=== PATIENT | male | born 1960 | race Caucasian/White ===

== ENCOUNTER 2016-12-06 00:23 | Emergency (ER) | payer MEDICAID ==
[~2016-12-06] VITALS: Ht 175.3 cm; Wt 86.0 kg
[2016-12-06 01:57] LABS: BASOPHILS % 0.9 % (0.0-2.0); DIFFERENTIAL COMMENT 0; EOSINOPHILS % 1.2 % (0.0-5.0); HEMATOCRIT. 35.3 % (42.0-52.0); HEMOGLOBIN. 11.5 g/dL (14.0-18.0); LYMPHOCYTES % 8.1 % (20.0-50.0); MEAN CORPUSCULAR HEMOGLOBIN 25.6 pg (28.0-32.0); MEAN CORPUSCULAR HGB CONC 32.6 g/dL (31.0-37.0); MEAN CORPUSCULAR VOLUME 78.6 fL (80.0-94.0); MEAN PLATELET VOLUME 7.5 fl (7.4-10.4); MONOCYTES % 8.4 % (2.0-8.0); NEUTROPHILS % 81.4 % (40.0-76.0); PLATELET 301 x1000/uL (130-400); RED BLOOD CELL COUNT 4.49 mill/uL (4.7-6.1); RED CELL DISTRIBUTION WIDTH 16.2 % (11.6-14.6); WHITE BLOOD COUNT 10.5 x1000/uL (4.5-11.0)
[2016-12-06 02:15] LABS: ALANINE AMINOTRANSFERASE 22 IU/L (13-61); ALBUMIN 2.9 g/dL (3.4-5.0); ANION GAP 12; CALCIUM 8.6 mg/dL (8.5-10.1); CARBON DIOXIDE 25 mEq/L (21-32); CHLORIDE 106 mEq/L (98-107); INDEX HEMOLYSI 1 (1-3); INDEX ICTERIC 1 (1-4); INDEX LIPEMIC 1 (1-3); NT PRO B-TYPE NATRIURETIC PEP 74 pg/mL (5-125); TROPONIN I < 0.02 ng/mL (0.00-0.04); UREA NITROGEN BLOOD 14 mg/dL (7-21); eGFR > 60 mL/min (>60)
[2016-12-06 04:02] VITALS: BP 138/71
== END 2016-12-06 04:20 | disposition home or self-care (01) ==
LOC: ER 00:29
DX: J40 Bronchitis, not specified as acute or chronic (principal); I50.9 Heart failure, unspecified; F17.210 Nicotine dependence, cigarettes, uncomplicated; G40.909 Epilepsy, unspecified, not intractable, without status epilepticus; Z88.0 Allergy status to penicillin; Z88.8 Allergy status to other drugs, medicaments and biological substances
CPT/HCPCS: 36415; 71010; 80053; 83880; 84484; 85025; 93005; 99285; Z7610

== ENCOUNTER 2017-02-09 23:18 | Emergency (ER) | payer MEDICAID ==
[~2017-02-09] VITALS: Ht 177.8 cm; Wt 79.0 kg
[2017-02-10] MEDS ORDERED: IBUPROFEN 600MG TABLET PO ONE (08:15)
[2017-02-10 08:28] LABS: BASOPHILS % 0.8 % (0.0-2.0); EOSINOPHILS % 2.1 % (0.0-5.0); HEMOGLOBIN. 12.7 g/dL (14.0-18.0); LYMPHOCYTES % 17.2 % (20.0-50.0); MEAN CORPUSCULAR HEMOGLOBIN 26.3 pg (28.0-32.0); MEAN CORPUSCULAR VOLUME 79.1 fL (80.0-94.0); MEAN PLATELET VOLUME 7.9 fl (7.4-10.4); MONOCYTES % 10.2 % (2.0-8.0); NEUTROPHILS % 69.7 % (40.0-76.0); PLATELET 222 x1000/uL (130-400); RED BLOOD CELL COUNT 4.81 mill/uL (4.7-6.1); RED CELL DISTRIBUTION WIDTH 16.8 % (11.6-14.6)
[2017-02-10 08:39] LABS: CARBON DIOXIDE 24 mEq/L (21-32); CHLORIDE 110 mEq/L (98-107); ETHANOL BLOOD < 10 mg/dL
[2017-02-10 08:56] VITALS: BP 122/73
[2017-02-10 09:04] LABS: *AMPHETAMINES SCREEN URINE NEGATIVE (NEGATIVE); *BARBITURATES SCREEN URINE NEGATIVE (NEGATIVE); *BENZODIAZEPINES SCREEN URINE NEGATIVE (NEGATIVE); *COCAINE SCREEN URINE PRESUMTIVE POSITIVE (NEGATIVE); CANNABINOID URINE SCREEN NEGATIVE (NEGATIVE); METHADONE URINE SCREEN NEGATIVE (NEGATIVE); OPIATES URINE SCREEN NEGATIVE (NEGATIVE); PHENCYCLIDINE URINE SCREEN NEGATIVE (NEGATIVE)
== END 2017-02-10 09:34 | disposition home or self-care (01) ==
LOC: ER 23:18
DX: S00.33XA Contusion of nose, initial encounter (principal); F12.10 Cannabis abuse, uncomplicated; F14.10 Cocaine abuse, uncomplicated; F17.200 Nicotine dependence, unspecified, uncomplicated; Z88.0 Allergy status to penicillin; Z88.8 Allergy status to other drugs, medicaments and biological substances; Y08.89XA Assault by other specified means, initial encounter; Y93.89 Activity, other specified; Y99.8 Other external cause status; Y92.89 Other specified places as the place of occurrence of the external cause
CPT/HCPCS: 36415; 70150; 80048; 80305; 80307; 80329; 85025; 99285; G0482

== ENCOUNTER 2017-02-10 21:41 | Emergency (ER) | payer MEDICAID ==
[~2017-02-10] VITALS: Ht 177.8 cm; Wt 83.7 kg
[2017-02-11 03:39] VITALS: BP 132/72
== END 2017-02-11 03:42 | disposition home or self-care (01) ==
LOC: ER 02-11 02:15
DX: J40 Bronchitis, not specified as acute or chronic (principal); F17.200 Nicotine dependence, unspecified, uncomplicated; Z88.0 Allergy status to penicillin
CPT/HCPCS: 71010; 99283

== ENCOUNTER 2017-04-14 22:26 | Emergency (ER) | payer MEDICAID ==
[~2017-04-14] VITALS: Ht 177.8 cm; Wt 81.2 kg
[2017-04-14 22:42] VITALS: BP 133/103
== END 2017-04-15 01:25 | disposition left against medical advice (07) ==
LOC: ER 22:26
DX: R42 Dizziness and giddiness (principal); R53.83 Other fatigue; Z53.21 Procedure and treatment not carried out due to patient leaving prior to being seen by health care provider

== ENCOUNTER 2017-04-21 03:43 | Emergency (ER) | payer MEDICAID ==
[~2017-04-21] VITALS: Ht 177.8 cm; Wt 82.0 kg
[2017-04-21 03:49] VITALS: BP 130/91
== END 2017-04-21 06:49 | disposition left against medical advice (07) ==
LOC: ER 06:38
DX: R07.9 Chest pain, unspecified (principal); R42 Dizziness and giddiness; Z53.21 Procedure and treatment not carried out due to patient leaving prior to being seen by health care provider

== ENCOUNTER 2019-11-26 20:24 | Emergency (ER) | payer MEDICAID ==
[~2019-11-26] VITALS: Ht 180.3 cm; Wt 82.0 kg
[2019-11-26 20:33] VITALS: BP 151/87
== END 2019-11-26 23:31 | disposition left against medical advice (07) ==
LOC: ER 20:24
DX: R11.2 Nausea with vomiting, unspecified (principal); Z53.21 Procedure and treatment not carried out due to patient leaving prior to being seen by health care provider

== ENCOUNTER 2025-05-05 20:49 | Emergency (ER) | payer MEDICAID ==
[~2025-05-05] VITALS: Ht 172.7 cm; Wt 68.0 kg
[~2025-05-05 20:49] MED LIST: KEPP500 PO
[2025-05-05 20:51] VITALS: TEMP 36.6; O2SAT 98
[2025-05-05 23:02] LABS: HEMATOCRIT. 34.0 % (42.0-52.0); HEMOGLOBIN. 11.3 g/dL (14.0-18.0); MEAN PLATELET VOLUME 8.7 fl (7.4-10.4); PLATELET 105 x1000/uL (130-400); RED BLOOD CELL COUNT 4.13 mill/uL (4.7-6.1); RED CELL DISTRIBUTION WIDTH 24.7 % (11.6-14.6)
[2025-05-05 23:17] LABS: CREATININE 0.9 mg/dL (0.6-1.3)
[2025-05-05 23:18] LABS: CREATININE 0.9 mg/dL (0.6-1.3); EOSINOPHILS % MANUAL 1.0 % (0.0-5.0); LYMPHOCYTES % MANUAL 22.0 % (20.0-50.0); MONOCYTES % MANUAL 17.0 % (2.0-8.0); NEUTROPHILS % MANUAL 60.0 % (45.0-75.0); PLATELET ESTIMATE DECREASED; TROPONIN I HIGH SENSITIVITY 4 ng/L (3.0-53); UREA NITROGEN BLOOD 14 mg/dL (9-23); VALPROIC ACID 99.0 ug/mL (50-100)
[2025-05-05 23:19] LABS: TROPONIN I HIGH SENSITIVITY 4 ng/L (3.0-53); UREA NITROGEN BLOOD 14 mg/dL (9-23)
[2025-05-05 23:20] LABS: ASPARTATE AMINOTRANSFERASE 19 IU/L (<34); BILIRUBIN DIRECT < 0.1 mg/dL (<=3.0); CARBAMAZEPINE < 0.4 ug/mL (4-12)
[2025-05-05 23:21] LABS: BILIRUBIN TOTAL 0.2 mg/dL (0.1-1.0); PROTEIN TOTAL 5.1 g/dL (6.0-8.3)
[2025-05-06 00:50] VITALS: BP 116/79; PULSE 70; RESP 20; O2SAT 98
== END 2025-05-06 00:51 | disposition home or self-care (01) ==
LOC: ER 20:49
DX: G40.909 Epilepsy, unspecified, not intractable, without status epilepticus (principal); F31.9 Bipolar disorder, unspecified; I11.0 Hypertensive heart disease with heart failure; I49.1 Atrial premature depolarization; I50.9 Heart failure, unspecified; J45.909 Unspecified asthma, uncomplicated; Z86.73 Personal history of transient ischemic attack (TIA), and cerebral infarction without residual deficits; Z88.0 Allergy status to penicillin; Z88.8 Allergy status to other drugs, medicaments and biological substances
CPT/HCPCS: 36415; 80048; 80076; 80156; 80165; 84484; 85025; 93005; 99284

== ENCOUNTER 2025-07-24 14:00 | Emergency (ER) | payer MEDICAID ==
[~2025-07-24] VITALS: Ht 170.2 cm; Wt 84.0 kg
[2025-07-24 14:05] VITALS: TEMP 98.2; O2SAT 100
[2025-07-24] MEDS: HYDROCODONE/ACETAMINOPHEN 5/325MG TABLET PO ONE (17:07)
[2025-07-24 19:30] VITALS: BP 115/82; PULSE 61; RESP 12; O2SAT 97
== END 2025-07-24 19:53 | disposition home or self-care (01) ==
LOC: ER 14:10
DX: S09.90XA Unspecified injury of head, initial encounter (principal); F31.9 Bipolar disorder, unspecified; I11.0 Hypertensive heart disease with heart failure; J45.909 Unspecified asthma, uncomplicated; Z86.73 Personal history of transient ischemic attack (TIA), and cerebral infarction without residual deficits; Z88.0 Allergy status to penicillin; Z88.8 Allergy status to other drugs, medicaments and biological substances; W18.30XA Fall on same level, unspecified, initial encounter; Y93.89 Activity, other specified; Y92.89 Other specified places as the place of occurrence of the external cause; Y99.8 Other external cause status
CPT/HCPCS: 99283

== ENCOUNTER 2025-07-24 21:18 | Emergency (ER) | payer MEDICAID ==
[~2025-07-24] VITALS: Ht 177.8 cm; Wt 87.0 kg
[2025-07-24 21:21] VITALS: O2SAT 97
[2025-07-24 21:28] VITALS: BP 104/73; PULSE 78; RESP 16; TEMP 36.9; O2SAT 98
== END 2025-07-24 21:50 | disposition home or self-care (01) ==
LOC: ER 21:18
DX: R56.9 Unspecified convulsions (principal); F31.9 Bipolar disorder, unspecified; I11.0 Hypertensive heart disease with heart failure; J45.909 Unspecified asthma, uncomplicated; Z86.73 Personal history of transient ischemic attack (TIA), and cerebral infarction without residual deficits; Z88.0 Allergy status to penicillin; Z88.8 Allergy status to other drugs, medicaments and biological substances
CPT/HCPCS: 99282

== ENCOUNTER 2025-08-10 12:19 | Emergency (ER) | payer MEDICAID ==
[~2025-08-10] VITALS: Ht 180.3 cm; Wt 88.3 kg
[2025-08-10 12:20] VITALS: O2SAT 96
[2025-08-10 13:42] LABS: HEMATOCRIT. 38.3 % (42.0-52.0); HEMOGLOBIN. 12.4 g/dL (14.0-18.0); MEAN PLATELET VOLUME 8.4 fl (7.4-10.4); PLATELET 124 x1000/uL (130-400); RED BLOOD CELL COUNT 4.17 mill/uL (4.7-6.1); RED CELL DISTRIBUTION WIDTH 16.2 % (11.6-14.6)
[2025-08-10 14:00] LABS: CREATININE 1.0 mg/dL (0.6-1.3); ETHANOL BLOOD < 10 mg/dL (<10); UREA NITROGEN BLOOD 8 mg/dL (9-23)
[2025-08-10 14:17] LABS: BAND% 2.0 % (1.0-6.0); EOSINOPHILS % MANUAL 2.0 % (0.0-5.0); LYMPHOCYTES % MANUAL 30.0 % (20.0-50.0); MONOCYTES % MANUAL 16.0 % (2.0-8.0); NEUTROPHILS % MANUAL 50.0 % (45.0-75.0)
[2025-08-10 14:18] LABS: PLATELET ESTIMATE SLIGHTLY DECREASED
[2025-08-10] MEDS: LEVETIRACETAM 1000MG PREMIX 100 ML IV SCH (15:00)
[2025-08-10] MEDS: KETOROLAC 15MG/ML VIAL IV ONE (15:05)
[2025-08-10] MEDS: DIVALPROEX SODIUM 500MG DR TABLET PO ONE (15:05)
[2025-08-10] MEDS: LEVETIRACETAM 1000MG PREMIX 100 ML IV ONE (15:06)
[2025-08-10] MEDS: SODIUM CHLORIDE 0.9% 1,000 ML IV ONE (15:08)
[2025-08-10] MEDS: KETOROLAC 15MG/ML VIAL IV SCH (15:09)
[2025-08-10 15:53] LABS: CLARITY URINE CLEAR (CLEAR); COLOR URINE YELLOW (YELLOW); GLUCOSE URINE NEGATIVE (NEGATIVE); KETONES URINE TRACE (NEGATIVE); LEUKOCYTE ESTERASE URINE NEGATIVE (NEGATIVE); NITRITE URINE NEGATIVE (NEGATIVE); OCCULT BLOOD URINE NEGATIVE (NEGATIVE); PH URINE 6.5 (4.5-8.0); PROTEIN URINE NEGATIVE (NEGATIVE); SPECIFIC GRAVITY URINE 1.018 (1.005-1.030); UROBILINOGEN URINE 1.0 E.U./dL (0.2-1.0)
[2025-08-10 16:16] LABS: *AMPHETAMINES SCREEN URINE NEGATIVE (NEGATIVE); *BARBITURATES SCREEN URINE NEGATIVE (NEGATIVE); *BENZODIAZEPINES SCREEN URINE NEGATIVE (NEGATIVE); *COCAINE SCREEN URINE NEGATIVE (NEGATIVE); CANNABINOID URINE SCREEN NEGATIVE (NEGATIVE); ECSTASY MDMA SCREEN URINE NEGATIVE (NEGATIVE); METHADONE URINE SCREEN NEGATIVE (NEGATIVE); OPIATES URINE SCREEN NEGATIVE (NEGATIVE); PHENCYCLIDINE URINE SCREEN NEGATIVE (NEGATIVE)
[2025-08-10 16:47] VITALS: BP 121/70; PULSE 67; RESP 18; TEMP 36.9; O2SAT 96
== END 2025-08-10 16:49 | disposition home or self-care (01) ==
LOC: ER 12:25
DX: G40.909 Epilepsy, unspecified, not intractable, without status epilepticus (principal); F17.200 Nicotine dependence, unspecified, uncomplicated; G31.9 Degenerative disease of nervous system, unspecified; I67.82 Cerebral ischemia; Z88.0 Allergy status to penicillin; Z88.8 Allergy status to other drugs, medicaments and biological substances; Z79.899 Other long term (current) drug therapy
CPT/HCPCS: 80305; 80048; 81003; 80320; 85025; 36415; 70450; 93005; 96365; 96375; 99285; 82542; J1953; J1885; J7030; G0480

== ENCOUNTER 2025-08-26 16:54 | Emergency (ER) | payer MEDICAID ==
[~2025-08-26] VITALS: Ht 177.8 cm; Wt 80.0 kg
[2025-08-26 17:01] VITALS: O2SAT 98
[2025-08-26 17:10] VITALS: BP 110/71; PULSE 62; RESP 17; TEMP 36.7; O2SAT 96
[2025-08-26 18:29] LABS: HEMATOCRIT. 35.4 % (42.0-52.0); HEMOGLOBIN. 11.6 g/dL (14.0-18.0); MEAN PLATELET VOLUME 8.2 fl (7.4-10.4); PLATELET 157 x1000/uL (130-400); RED BLOOD CELL COUNT 3.91 mill/uL (4.7-6.1); RED CELL DISTRIBUTION WIDTH 15.7 % (11.6-14.6)
[2025-08-26 18:48] LABS: UREA NITROGEN BLOOD 11 mg/dL (9-23)
[2025-08-26 18:49] LABS: CREATININE 1.1 mg/dL (0.6-1.3)
[2025-08-26 18:50] LABS: PROTEIN TOTAL 5.8 g/dL (6.0-8.3)
[2025-08-26 18:51] LABS: ASPARTATE AMINOTRANSFERASE 26 IU/L (<34); BILIRUBIN DIRECT 0.1 mg/dL (<=3.0); BILIRUBIN TOTAL 0.3 mg/dL (0.1-1.0); CARBAMAZEPINE < 0.4 ug/mL (4-12)
[2025-08-26 19:21] LABS: EOSINOPHILS % MANUAL 1.0 % (0.0-5.0); LYMPHOCYTES % MANUAL 30.0 % (20.0-50.0); MONOCYTES % MANUAL 15.0 % (2.0-8.0); NEUTROPHILS % MANUAL 54.0 % (45.0-75.0); PLATELET ESTIMATE NORMAL
== END 2025-08-26 18:31 | disposition left against medical advice (07) ==
LOC: ER 16:54
DX: Z00.00 Encounter for general adult medical examination without abnormal findings (principal); R56.9 Unspecified convulsions; J45.909 Unspecified asthma, uncomplicated; Z88.0 Allergy status to penicillin; Z88.8 Allergy status to other drugs, medicaments and biological substances; Z79.899 Other long term (current) drug therapy
CPT/HCPCS: 36415; 71045; 80048; 80076; 80156; 80165; 83735; 85025; 99284